=== PATIENT | male | born 2000 | race Caucasian/White ===

== ENCOUNTER 2021-12-03 19:10 | Emergency (ER) | payer BC, SELFPAY ==
[2021-12-03 19:38] VITALS: BP 161/77; PULSE 84; RESP 18; TEMP 36.7; O2SAT 99; BMI 25.1
--- NOTE | 2021-12-03 20:43 | ED.WOUNDLAC ---
HPI - Wound/Laceration General Chief Complaint: Laceration/Wound Stated Complaint: Hand Lac Time Seen by Provider: 12/03/21 20:25 History of Present Illness HPI narrative: This patient comes in with a laceration to his left thumb. He was using a knife and accidentally cut the dorsal aspect of his left thumb overlying the PIP joint. He states that his tetanus is up-to-date. He does not have any tendon function deficit. Related Data Home Medications Medication Instructions Recorded Confirmed emtricitabine 120 mg-tenofovir 1 tab PO DAILY 12/03/21 12/03/21 alafenamide fumarate 15 mg tablet (Descovy) Allergies Allergy/AdvReac Type Severity Reaction Status Date / Time No Known Drug Allergies Allergy Verified 12/03/21 19:42 Review of Systems Status of ROS: Reports: 10 or more systems reviewed and unremarkable except as noted in History and below Narrative: Constitutional: No fevers, no weight gain or loss. Eyes: No discharge. No vision changes. HENT: No congestion, no sore throat, no ear pain. Cardiovascular: No chest pain, no palpitations. Respiratory: No shortness of breath, no wheezes, no cough. Gastrointestinal: No abdominal pain, no vomiting, no diarrhea. Genitourinary: No dysuria, no hematuria. Musculoskeletal: Normal range of motion. Skin: No rashes, no pruritis. Neurological: No dizziness, weakness, sensory change, speech change. Endo/Heme/Allergies: No bruising or bleeding. No polydipsia. Pysch: no suicidality, no anxiety, no insomnia. All other systems reviewed and are negative. [facility] Medical History (Updated 12/03/21 @ 20:46 by Malick Carnes MD) No significant past medical history Surgical History No significant past surgical history Social History Smoking Status: Never smoker Do you use any of these nicotine containing products: None Second hand tobacco smoke exposure: No How often do you have a drink containing alcohol: never How often do you have six or more drinks on one occasion: Never AUDIT-C Alcohol total score: 0 Non-prescribed substance use: marijuana (any form) Exam Narrative: Exam Narrative: Constitutional: Well-developed, well-nourished, no acute distress. HEENT: Normocephalic, atraumatic. Neck: Normal range of motion. Nontender. Supple. Heart: Intact distal pulses. Lungs: No chest discomfort. No wheezes, rhonchi, or rales. Abdomen: Nontender. Back: Normal range of motion. Extremities: Normal range of motion. 2 cm linear laceration over the dorsal aspect of the left thumb. Skin: Intact. No rash. Warm. No erythema or pallor. Neurologic: No altered sensation. No weakness. Alert and oriented. Psychiatric: No suicidality. No anxiety or depression. No insomnia. Nursing notes and vitals signs are reviewed. Const: Vital Signs, click to edit/add: Vital Signs - 24 hr 12/03/21 19:38 Temperature 98.0 F Pulse Rate [Right Pulse Oximeter] 84 Respiratory Rate 18 Blood Pressure [Ri ght Upper Arm] 161/77 H Pulse Oximetry 99 Oxygen Delivery Me thod Room Air Course Vital Signs Vital signs: Initial Vital Signs Temperature 98.0 F 12/03/21 19:38 Temperature Source Temporal Artery Scan 12/03/21 19:38 Pulse Rate 84 12/03/21 19:38 Respiratory Rate 18 12/03/21 19:38 Blood Pressure 161/77 H 12/03/21 19:38 Blood Pressure Mean 105 12/03/21 19:38 Blood Pressure Position Sitting 12/03/21 19:38 Pulse Oximetry 99 12/03/21 19:38 Oxygen Delivery Method 12/03/21 19:38 Vital Signs Temperature 98.0 F 12/03/21 19:38 Pulse Rate 84 12/03/21 19:38 Respiratory Rate 18 12/03/21 19:38 Blood Pressure 161/77 H 12/03/21 19:38 Pulse Oximetry 99 12/03/21 19:38 Oxygen Delivery Method 12/03/21 19:38 Temperature 98.0 F 12/03/21 19:38 Pulse Rate 84 12/03/21 19:38 Respiratory Rate 18 12/03/21 19:38 Blood Pressure 161/77 H 12/03/21 19:38 Pulse Oximetry 99 12/03/21 19:38 Oxygen Delivery Method 12/03/21 19:38 MDM - Wound/Laceration MDM Narrative Medical decision making narrative: This patient comes in with a laceration of his left thumb as described above. I did examine the wound to its base and there is no evidence of tendon injury or other dysfunction. After anesthesia with 1% lidocaine with epinephrine the wound edges were approximated using 4.0 Ethilon suture. Total of 4 sutures were placed in interrupted fashion. Instructions were given regarding wound care and the need to return to clinic or urgent care in 7-10 days for suture removal. Discharge Plan Discharge Clinical Impression: Laceration Patient Disposition: Home, Self-Care Condition: Improved Additional Instructions: Keep wound clean and dry. Return to clinic or urgent care in 7-10 days for suture removal. Prescriptions: No Action Descovy 120-15 mg tablet 1 tab PO DAILY Follow Up/Referrals: Provider,Not a Local [Primary Care Provider] - Stand Alone Forms: [employer] Info Instructions
[2021-12-03 20:56] VITALS: BP 154/74; PULSE 79; RESP 18; TEMP 36.7; O2SAT 99
[2021-12-03 21:05] VITALS: BP 154/74; PULSE 79; RESP 18; TEMP 36.7
== END 2021-12-03 21:06 | disposition home or self-care (01) ==
PROVIDERS: Emergency Provider Emergency Medicine Emergency Medical Services
DX: S61.012A Laceration without foreign body of left thumb without damage to nail, initial encounter (principal); W26.0XXA Contact with knife, initial encounter
CPT/HCPCS: 12001; 99283